=== PATIENT | male | born 1995 | race Caucasian/White ===

== ENCOUNTER 2019-06-09 10:36 | Emergency (ER) | payer BC ==
[2019-06-09] MEDS ORDERED: FLU Vacc QS2019-20(6MOS+)/PF 60 MCG/0.5 ML SYRINGE IM ONE (11:15)
--- NOTE | 2019-06-09 11:15 | EDM.PDOC ---
ED HPI GENERAL MEDICAL PROBLEM - General Chief Complaint: Skin Complaint Stated Complaint: SKIN COMPLAINT-R FOOT Time Seen by Provider: 06/09/19 10:54 Source of Information: Reports: Patient History Limitations: Reports: No Limitations - History of Present Illness INITIAL COMMENTS - FREE TEXT/NARRATIVE: Mr. 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 He states that he developed an erythematous rash to the medial aspect of his right ankle about one month ago. He states that the lesion will be raw and weepy in the morning, after he bathes, but then develop a sort of dry skin over it over the course of the day. He states that when the skin dries over it, the lesion becomes pruritic. He states that the lesion has grown larger since it first developed despite his applying gpnv-nam-cpttsow hydrocortisone cream daily. In addition, the patient developed a small lesion in the same position on his left medial ankle about 2 weeks ago. He has been applying hydrocortisone to that, as well, with no improvement. The patient clarifies that in the morning, when it is weepy in appearance, it does not bother him at all, but it is very pruritic by evening. Here in the emergency department, the right ankle lesion is relatively raw and weepy in appearance, and the patient states that it is not pruritic at this time. The patient denies prior similar symptoms. He denies recent fever, chills, cough, nausea, vomiting, constipation, diarrhea , abdominal pain, or urinary symptoms. The patient states that he wears boots at work during the day, but denies that the boots are rubbing the areas of concern. The patient does not have a PCP. He is not sure if his vaccinations are up-to-date, and he has not received an influenza vaccine this season. 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 ED EXAM, SKIN/RASH Exam: See Below Exam Limited By: No Limitations General Appearance: Alert, WD/WN, No Apparent Distress Extremities: Other (There is an approximately 2 cm x 1.5 m oval area of erythema to the medial aspect of the patient's right ankle, just posterior to the medial malleolus, but anterior to the Achilles tendon. Its appearance is somewhat ulcerative, and it is weeping clear fluid. There are several punctate satellite areas of erythema surrounding the oval area. There is an approximately 4 mm dry, scaly oval lesion to the same position to the patient's medial left ankle. Neurovascular status of both lower 70s is intact.) Course - Vital Signs Last Recorded V/S: Last Vital Signs Temp 36.6 C 06/09/19 10:57 Pulse 70 06/09/19 10:57 Resp 14 06/09/19 10:57 BP 123/77 06/09/19 10:57 Pulse Ox 97 06/09/19 10:57 - Orders/Labs/Meds Meds: Medications Discontinued Medications Generic Name Dose Route Start Last Admin Trade Name Saleemq PRN Reason Stop Dose Admin Influenza Virus Vaccine 1 each 06/09/19 11:07 Pharmacy To Dose - Influenza Vaccine IM 06/09/19 11:08 ONETIME ONE Influenza Virus Vaccine 60 mcg 06/09/19 11:15 06/09/19 11:29 Fluzone Quad [id number] Syringe IM 06/09/19 11:16 60 mcg .ONCE ONE Administration - Re-Assessments/Exams Free Text/Narrative Re-Assessment/Exam: 06/09/19 11:09 While I can't be certain, I suspect that the patient is suffering from vesiculobullous tinea pedis. I'm going to recommend that the patient stop applying a topical steroid cream and start applying a topical antifungal cream or ointment. If he does not see results within the next 2 weeks, he should follow-up with a [facility]. Departure - Departure Time of Disposition: 11:13 Disposition: Home, Self-Care 01 Condition: Good Clinical Impression: Tinea pedis - Discharge Information *PRESCRIPTION DRUG MONITORING PROGRAM REVIEWED*: Not Applicable *COPY OF PRESCRIPTION DRUG MONITORING REPORT IN PATIENT TIMA: Not Applicable Instructions: Athlete's Foot, [id number] Referrals: Missael Taylor MD [Ordering Only Provider] - Forms: ED Department Discharge Additional Instructions: You were seen in the emergency room for a red itchy skin lesion to the inside of your right ankle, and a similar developing area to the inside of your left ankle. Based on your history and physical examination, you are most likely suffering from a fungal infection called tinea pedis. We recommend that you stop applying the topical steroid cream and begin applying an [id number] topical antifungal cream or ointment, such as clotrimazole, ketoconazole, or miconazole, once or twice a day. Fungal infections take a long time to grow, and take a long time to resolve. If your symptoms have not begun to improve within 2 weeks, please follow-up with the [facility] Dr. Missael Taylor, in [place]. You received an influenza vaccine during your ER visit. If any other problems, please do not hesitate to return to the ER.
== END 2019-06-09 11:40 | disposition home or self-care (01) ==
LOC: JD.ED 10:36
DX: B35.3 Tinea pedis (principal); Z23 Encounter for immunization; Z91.09 Other allergy status, other than to drugs and biological substances
CPT/HCPCS: 90686; 99283-25; G0008